=== PATIENT | male | born 1955 | race Caucasian/White ===

== ENCOUNTER 2017-06-13 06:18 | Day surgery (SDC) | payer BC ==
[~2017-06-13 06:18] MED LIST: LACTATED RINGERS 1,000 ML ONE
[2017-06-13] MEDS ORDERED: MIDAZOLAM INJ 5 MG/5 ML VIAL ONE (07:00)
[2017-06-13] MEDS ORDERED: fentaNYL CITRATE INJ 50 MCG/ML AMP ONE (07:00)
[2017-06-13] MEDS ORDERED: LIDOCAINE 1% 10 ML VIAL INJ ONE (07:00)
[2017-06-13] MEDS ORDERED: PROPOFOL 200 MG/20 ML VIAL IV ONE (07:00)
--- NOTE | 2017-06-13 08:30 | OP ---
DATE OF PROCEDURE: 06/13/17 PREOPERATIVE DIAGNOSIS: 1. Colon cancer screen. POSTOPERATIVE DIAGNOSIS: 1. Rectal polyp. 2. Diverticulosis of the sigmoid colon. PROCEDURE: 1. Colonoscopy with polypectomy. SURGEON: Gerardo Francois MD. ANESTHESIA: MAC by Jose Guadalupe Henao CRNA. ESTIMATED BLOOD LOSS: Less than 1 cc. COMPLICATIONS: None apparent. TECHNIQUE: After informed consent was obtained from the patient, the patient was taken to the Endoscopy Suite and put in the left lateral decubitus position. After adequate IV sedation was obtained, a digital rectal exam was performed which revealed decreased sphincter tone, no intraluminal masses, and a smooth, 1+, anodular prostate. The colonoscope was then passed with good visualization all the way through the colon. The bowel prep was excellent. The cecum was identified by the presence of ileocecal valve and appendiceal orifice. The scope was then withdrawn slowly over the next 8 0 minutes and a good look at the entire colonic mucosa was obtained. The patient was noted to have a very few, small, scattered diverticula through the sigmoid colon. There was a small rectal polyp noted at around 10 cm. This was removed easily with cold biopsy forceps and excellent hemostasis was noted after the polyp was resected. The scope was removed. The patient tolerated the procedure well. The patient was transported to the outpatient area in good condition. He will followup with me in two weeks. #[id number] [facility], [place]
[2017-06-13 09:00] VITALS: TEMP 97.1
[2017-06-13 09:03] VITALS: BP 149/94; O2SAT 95
== END 2017-06-13 08:15 | disposition home or self-care (01) ==
LOC: AMB 06:18
PROVIDERS: ATTEND Family Medicine
DX: Z12.11 Encounter for screening for malignant neoplasm of colon (principal); K62.1 Rectal polyp; K57.30 Diverticulosis of large intestine without perforation or abscess without bleeding; I25.10 Atherosclerotic heart disease of native coronary artery without angina pectoris; E78.00 Pure hypercholesterolemia, unspecified; Z95.5 Presence of coronary angioplasty implant and graft; I25.2 Old myocardial infarction; Z79.82 Long term (current) use of aspirin; Z79.899 Other long term (current) drug therapy
CPT/HCPCS: 00810; 45380; J2250; J3010; J3490; J7120

== ENCOUNTER → 2017-10-21 | Outpatient (CLI) | payer BC | END | disposition home or self-care (01) | LOC: GMAJ 10:38 | PROVIDERS: ATTEND Family Medicine | DX: E78.00 Pure hypercholesterolemia, unspecified (principal); Z12.5 Encounter for screening for malignant neoplasm of prostate ==

== ENCOUNTER → 2018-05-14 | Outpatient (CLI) | payer BC | LOC: GMAJ 10:38 | PROVIDERS: ATTEND Family Medicine | DX: Z00.00 Encounter for general adult medical examination without abnormal findings (principal) ==

== ENCOUNTER → 2019-12-02 | Outpatient (CLI) | payer OTHER | LOC: GMAJ 10:30 | PROVIDERS: ATTEND Family Medicine | DX: Z12.5 Encounter for screening for malignant neoplasm of prostate (principal); I10 Essential (primary) hypertension; E78.2 Mixed hyperlipidemia ==

== ENCOUNTER 2020-09-12 11:40 | Outpatient (CLI) | payer OTHER | END 2020-09-13 15:20 | disposition home or self-care (01) | LOC: INFRM 11:40 | PROVIDERS: ATTEND Family Medicine | DX: U07.1 COVID-19 (principal); I25.10 Atherosclerotic heart disease of native coronary artery without angina pectoris; I10 Essential (primary) hypertension; Z23 Encounter for immunization ==